=== PATIENT | male | born 1980 | race Caucasian/White ===

== ENCOUNTER 2019-08-27 11:40 | Day surgery (SDC) | payer OTHER ==
[~2019-08-27 11:40] MED LIST: Midazolam 1 MG/ML 2 ML SDV ONE; Propofol 200 MG/20 ML SDV ONE; fentaNYL 100 MCG/2 ML SDV ONE
--- NOTE | 2019-08-27 12:14 | PCM.PREANE ---
Preanesthetic Assessment - Anesthesia/Transfusion/Family Hx Anesthesia History: Prior Anesthesia Without Reaction Family History of Anesthesia Reaction: No Transfusion History: No Prior Transfusion(s) - Review of Systems General: No Symptoms Cardiovascular: No Symptoms Gastrointestinal: No Symptoms Neurological: No Symptoms Other: Reports: None - Physical Assessment NPO Status Date: 08/26/19 Height: 5 ft 8 in Weight: 146.964 kg ASA Class: 3 Mental Status: Alert & Oriented x3 Airway Class: Mallampati = 2 Dentition: Reports: Normal Dentition ROM/Head Extension: Full Lungs: Clear to Auscultation, Normal Respiratory Effort Cardiovascular: Regular Rate, Regular Rhythm - Allergies Allergies/Adverse Reactions: Allergies Allergy/AdvReac Type Severity Reaction Status Date / Time No Known Allergies Allergy Verified 08/23/19 13:06 - Blood Blood Available: No - Anesthesia Plan Pre-Op Medication Ordered: None - Acknowledgements Anesthesia Type Planned: General Anesthesia (tiva) Pt an Appropriate Candidate for the Planned Anesthesia: Yes Alternatives and Risks of Anesthesia Discussed w Pt/Guardian: Yes Pt/Guardian Understands and Agrees with Anesthesia Plan: Yes Additional Comments: PMH: DAISY-uses CPAP, chronic LBP, (denies gout, denies HTN - both listed as active problems inhis PMH) PLAN: tiva PreAnesthesia Questionnaire HEENT History: Reports: Hard of Hearing Other HEENT History: chastity hearing aids Cardiovascular History: Reports: None Respiratory History: Reports: Sleep Apnea Other Respiratory History: uses CPAP Gastrointestinal History: Reports: None Genitourinary History: Reports: Renal Calculus Musculoskeletal History: Reports: Back Pain, Chronic Neurological History: Reports: None Psychiatric History: Reports: Anxiety, Depression, PTSD Endocrine/Metabolic History: Reports: Obesity/BMI 30+ Hematologic History: Reports: None Immunologic History: Reports: None Oncologic (Cancer) History: Reports: None Dermatologic History: Reports: None - Past Surgical History Head Surgeries/Procedures: Reports: None HEENT Surgical History: Reports: Myringotomy w Tube(s) Cardiovascular Surgical History: Reports: None Respiratory Surgical History: Reports: None GI Surgical History: Reports: Hernia, Abdominal, Hernia, Inguinal Male Surgical History: Reports: None Endocrine Surgical History: Reports: None Neurological Surgical History: Reports: None Musculoskeletal Surgical History: Reports: None Oncologic Surgical History: Reports: None Dermatological Surgical History: Reports: None - SUBSTANCE USE Smoking Status *Q: Former Smoker Tobacco Use Within Last Twelve Months: No - HOME MEDS Home Medications: Home Meds DULoxetine HCl [Cymbalta] 60 mg PO DAILY 08/23/19 [History] Ibuprofen 800 mg PO TID PRN 08/23/19 [History] Prazosin HCl [Prazosin] 2 mg PO BEDTIME 08/23/19 [History] - CURRENT (IN HOUSE) MEDS Current Meds: Current Medications Discontinued Medications Fentanyl (Sublimaze) Confirm Administered Dose 100 mcg .ROUTE .STK-MED ONE Stop: 08/27/19 07:16 Lidocaine HCl (Xylocaine-Mpf 1%) Confirm Administered Dose 5 ml .ROUTE .STK-MED ONE Stop: 08/27/19 07:16 Midazolam HCl (Versed 1 Mg/Ml) Confirm Administered Dose 2 mg .ROUTE .STK-MED ONE Stop: 08/27/19 07:16 Propofol (Diprivan 20 Ml) Confirm Administered Dose 200 mg .ROUTE .STK-MED ONE Stop: 08/27/19 07:16
[2019-08-27] MEDS ORDERED: Lactated Ringers 1,000 ML IV SCH (12:15)
[2019-08-27] MEDS ORDERED: Propofol 200 MG/20 ML SDV ONE ×2 (13:03→13:21)
--- NOTE | 2019-08-27 13:49 | PCM.OPNOTE ---
- General Post-Op/Procedure Note Date of Surgery/Procedure: 08/27/19 Operative Procedure(s): egd w bx. colonoscopy w snare Findings: see [id number] Pre Op Diagnosis: gib Post-Op Diagnosis: Same Anesthesia Technique: Moderate Sedation Primary Surgeon: Montez Francisco Pathology: 1) egd bx 2) large 20mm pedunculated polyp at 55cm when scope pulled out, tattooed; 4mm sessile polyp at 30cm when scope pulled out Complications: None Condition: Good
--- NOTE | 2019-08-27 14:10 | PCM48HPAN ---
Post Anesthesia Note - EVALUATION WITHIN 48HRS OF ANESTHETIC Vital Signs in Normal Range: Yes Patient Participated in Evaluation: Yes Respiratory Function Stable: Yes Airway Patent: Yes Cardiovascular Function Stable: Yes Hydration Status Stable: Yes Pain Control Satisfactory: Yes Nausea and Vomiting Control Satisfactory: Yes Mental Status Recovered: Yes Vital Signs: Last Vital Signs Temp 96.8 F L 08/27/19 13:53 Pulse 70 08/27/19 13:53 Resp 16 08/27/19 13:53 BP 106/61 08/27/19 13:53 Pulse Ox 98 08/27/19 13:53
--- NOTE | 2019-08-27 14:10 | PCM.POSTAN ---
POST ANESTHESIA ASSESSMENT - MENTAL STATUS Mental Status: Alert, Oriented - VITAL SIGNS Vital Signs: Last Vital Signs Temp 96.8 F L 08/27/19 13:53 Pulse 70 08/27/19 13:53 Resp 16 08/27/19 13:53 BP 106/61 08/27/19 13:53 Pulse Ox 98 08/27/19 13:53 - RESPIRATORY Respiratory Status: Respiratory Rate WNL, Airway Patent, O2 Saturation Stable - CARDIOVASCULAR CV Status: Pulse Rate WNL, Blood Pressure Stable - GASTROINTESTINAL GI Status: No Symptoms - POST OP HYDRATION Hydration Status: Adequate & Stable
--- NOTE | 2019-08-27 17:20 | OR ---
SURGEON: Montez Francisco MD DATE OF PROCEDURE: 08/27/2019 PREOPERATIVE DIAGNOSIS: Gastrointestinal bleeding. POSTOPERATIVE DIAGNOSIS: Esophagogastroduodenoscopy diagnosis is gastroesophageal reflux disease and colonoscopy diagnosis is large polyp. PROCEDURES PERFORMED: Esophagogastroduodenoscopy with biopsy and colonoscopy with snare and tattoo DESCRIPTION OF PROCEDURE: EGD: The patient was taken to the endoscopy room, and with the INSURANCE PRODUCER, Diprivan was administered. A well-lubricated EGD scope was gently inserted through the oropharynx, down the esophagus, passing through the gastroesophageal junction, into the stomach. The mucosa was examined upon the passage. Any etiology will be noted. Once in the stomach, we continued to advance to the distal antrum, passed through the pylorus into the second portion of the duodenum. Again, the mucosa was examined for any abnormality and etiology. The scope was then retrieved back to the stomach and then retroflexed to look at the fundus of the stomach. If a biopsy was indicated, we will biopsy the antrum, body, and gastroesophageal junction. The air will be sucked out while the scope is retrieved to reduce the patient's discomfort. The patient tolerated the procedure well. There were no intraoperative complications. Dr. Francisco was present through the whole procedure. Prior to surgery, a time-out had been called, the patient identified, procedure identified and antibiotic administered. The patient was taken to the endoscopy room. A time out was called, patient identified, and procedure identified. Diprivan was then administrated. Patient went from awake to sleep, hearing doctor talking or door closing is normal. Perineum inspection and digital examination were then performed. A well- lubricated colonoscope was gently inserted through the rectum, advanced past the rectosigmoid junction, the descending colon, splenic flexure, transverse colon, hepatic flexure, ascending colon, arrived to the cecum. Cecum was identified as dictated in the finding. Then the scope was carefully withdrawn while attention was paid to the mucosal surface for any abnormality. Air will be sucked out during the scope withdrawal. At the rectum, retroflexed to examine any rectal diseases, fistula or hemorrhoids. During mucosal examination, abnormality or polyp encountered. Using snare equipment, the abnormality or the polyp was then snared off using electrocautery. The Patient tolerated procedure well. There were no intraoperative complications, and Dr. Francisco was present throughout the whole procedure. FINDINGS: EGD findings: 1. The patient is easily sedated with INSURANCE PRODUCER and Diprivan, the patient is soundly snoring. 2. Oropharynx and proximal esophagus are free of disease, stricture, inflammation. Distal esophagus at GE junction shows mild salmon-colored change, suggests mild acid reflux and stomach rugae is normal in appearance. Antrum is normal and duodenum is grossly normal. Retroflexed look at the fundus of stomach there is no hiatal hernia. Biopsy done at antrum, body, GE junction at 40 and sucked out the gas while scope pulling out. During the whole study, there is no food, bile, blood observed, none of those. Colonoscopy findings: 1. The patient is easily sedated with INSURANCE PRODUCER and Diprivan, the patient is soundly snoring. 2. Bowel prep is average to above average and some liquid stool, no semi- formed stool. 3. Colon rather straightforward. Cecum indicated by ileocecal fold, one-to- one indentation, appendiceal orifice, and light emittance not observed. ScopeGuide is pointing south. With irrigation, mucosa examined upon scope pulling out. The patient has a pedunculated polyp, large, about 20 mm at distance 55 when scope pulling out and that was snared and captured and sent for pathology, that one has a stalk, pedunculated polyp. It was tattooed and inked. As it continued to come out, the patient has another one, small one, at distance 30 when scope coming out, that one was also snared and captured and sent for pathology. The one on 55, the large one, pedunculated one was tattooed and the patient also has moderate internal hemorrhoids and moderate external hemorrhoids. The patient also has mild diverticulosis on the left colon. No signs or symptoms of diverticulitis and no inflammation, stricture, ulceration, AV malformation, bleeding, none of those. Repeat colonoscopy depends on the pathology of the polyp. As always, thank you for the kind referral. ANALI / JULY /[id number] MERCEDES
== END 2019-08-27 14:20 | disposition home or self-care (01) ==
LOC: MW.SDS 11:40
PROVIDERS: ATTEND Surgery
DX: D12.6 Benign neoplasm of colon, unspecified (principal); K29.50 Unspecified chronic gastritis without bleeding; K21.0 Gastro-esophageal reflux disease with esophagitis; K57.30 Diverticulosis of large intestine without perforation or abscess without bleeding; K64.8 Other hemorrhoids; K64.4 Residual hemorrhoidal skin tags; F41.9 Anxiety disorder, unspecified; F32.9 Major depressive disorder, single episode, unspecified; I10 Essential (primary) hypertension; E66.9 Obesity, unspecified; E78.00 Pure hypercholesterolemia, unspecified; Z79.899 Other long term (current) drug therapy; Z87.891 Personal history of nicotine dependence; Z68.42 Body mass index [BMI] 45.0-49.9, adult
CPT/HCPCS: 43239; 45381; 45385; J2001; J2250; J2704; J3010; J7120; 00813

== ENCOUNTER 2020-09-17 11:56 | Emergency (ER) | payer OTHER, BC ==
[2020-09-17] MEDS ORDERED: Morphine 4 MG/ML Syringe IVPUSH ONE (12:16)
[2020-09-17] MEDS ORDERED: Sodium Chloride 0.9% 2.5 ML Syringe FLUSH PRN (12:16)
[2020-09-17] MEDS ORDERED: Ondansetron 4 MG/2 ML SDV IVPUSH ONE (12:16)
[2020-09-17] MEDS ORDERED: Sodium Chloride 0.9% 10 ML Syringe FLUSH PRN (12:16)
--- NOTE | 2020-09-17 12:21 | EDM.PDOC ---
ED HPI GENERAL MEDICAL PROBLEM - General Chief Complaint: Flank Pain Stated Complaint: SEVERE STOMACH, BACK, AND GROIN PAIN Time Seen by Provider: 09/17/20 11:58 - History of Present Illness INITIAL COMMENTS - FREE TEXT/NARRATIVE: 40-year-old male otherwise well presenting with acute onset left flank pain radiating into the left lower quadrant to the left groin. Patient had a mild stomachache when he woke up this morning. However 45 minutes prior to arrival he developed sudden severe left inferior flank pain radiating into the left groin minimally down the left leg and into the left testicle as well. No exacerbating or alleviating factors no comfortable position. He does have a history of renal colic in the past. He also has a history of bilateral inguinal hernia repair in the past. Some nausea but no vomiting no diarrhea. No fevers. Pain currently 10 out of 10. He endorses mild testicle discomfort but denies severe testicle pain. flank Pain Score (Numeric/FACES): 9 - Related Data Allergies Allergy/AdvReac Type Severity Reaction Status Date / Time No Known Allergies Allergy Verified 09/17/20 12:18 Home Meds: Home Meds . [No Known Home Meds] 09/17/20 [History] Past Medical History HEENT History: Reports: Hard of Hearing Other HEENT History: chastity hearing aids Cardiovascular History: Reports: None Respiratory History: Reports: Sleep Apnea Other Respiratory History: uses CPAP Gastrointestinal History: Reports: None Genitourinary History: Reports: Renal Calculus Musculoskeletal History: Reports: Back Pain, Chronic Neurological History: Reports: None Psychiatric History: Reports: Anxiety, Depression, PTSD Endocrine/Metabolic History: Reports: Obesity/BMI 30+ Hematologic History: Reports: None Immunologic History: Reports: None Oncologic (Cancer) History: Reports: None Dermatologic History: Reports: None - Past Surgical History Head Surgeries/Procedures: Reports: None HEENT Surgical History: Reports: Myringotomy w Tube(s) Cardiovascular Surgical History: Reports: None Respiratory Surgical History: Reports: None GI Surgical History: Reports: Hernia, Abdominal, Hernia, Inguinal Male Surgical History: Reports: None Endocrine Surgical History: Reports: None Neurological Surgical History: Reports: None Musculoskeletal Surgical History: Reports: None Oncologic Surgical History: Reports: None Dermatological Surgical History: Reports: None Social & Family History - Family History Family Medical History: No Pertinent Family History ED ROS GENERAL - Review of Systems Review Of Systems: See Below Free Text/Narrative/Comment: General: No fever. Neck: No neck stiffness. Respiratory: No shortness of breath. Cardiac: No chest pain. Gastrointestinal: Per HPI Urinary: Per HPI Musculoskeletal: No myalgias/arthralgias. Neurologic: No headache. ED EXAM, GENERAL - Physical Exam Exam: See Below Free Text/Narrative:: General Appearance: No acute distress, appears comfortable Skin: No rash HEENT: Normocephalic/atraumatic, sclera anicteric, mucous membranes moist Neck: Normal range of motion Chest and Lungs: Bilateral breath sounds, clear to auscultation Cardiovascular: Regular rate and rhythm, no murmur Abdomen: Minimal left lower quadrant tenderness without guarding or rebound minimal left inguinal tenderness but no palpable swelling or mass : Bilaterally distended testicles without tenderness Back: Normal Musculoskeletal: No edema or tenderness Neurologic: Awake, alert, no obvious deficits, moving all extremities Psychiatric: Appropriate, cooperative Course - Vital Signs Last Recorded V/S: Last Vital Signs Temp 98 F 09/17/20 12:18 Pulse 71 09/17/20 12:18 Resp BP 131/75 09/17/20 12:18 Pulse Ox 95 09/17/20 12:18 - Orders/Labs/Meds Orders: Active Orders 24 hr Category Date Time Status Sodium Chloride 0.9% [Saline Flush] Med 09/17/20 12:16 Active 10 ml FLUSH ASDIRECTED PRN Sodium Chloride 0.9% [Saline Flush] Med 09/17/20 12:16 Active 2.5 ml FLUSH ASDIRECTED PRN Saline Lock Insert [OM.PC] Stat Oth 09/17/20 12:16 Ordered Medication Orders Sodium Chloride (Sodium Chloride 0.9% 10 Ml Syringe) 10 ml FLUSH ASDIRECTED PRN PRN Reason: Keep Vein Open Last Admin: 09/17/20 12:30 Dose: 10 ml Documented by: LUIS A Sodium Chloride (Sodium Chloride 0.9% 2.5 Ml Syringe) 2.5 ml FLUSH ASDIRECTED PRN PRN Reason: Keep Vein Open Last Admin: 09/17/20 12:30 Dose: 2.5 ml Documented by: LUIS A Labs: Laboratory Tests 09/17/20 09/17/20 09/17/20 Range/Units 12:35 12:35 13:20 WBC 6.37 (4.0-11.0) K/uL RBC 4.85 (4.50-5.90) M/uL Hgb 14.7 (13.0-17.0) g/dL Hct 42.6 (38.0-50.0) % MCV 87.8 (80.0-98.0) fL MCH 30.3 (27.0-32.0) pg MCHC 34.5 (31.0-37.0) g/dL RDW Std Deviation 40.4 (28.0-62.0) fl RDW Coeff of Werner 13 (11.0-15.0) % Plt Count 236 (150-400) K/uL MPV 11.60 (7.40-12.00) fL Neut % (Auto) 70.0 (48.0-80.0) % Lymph % (Auto) 18.1 (16.0-40.0) % [place] % (Auto) 10.0 (0.0-15.0) % Eos % (Auto) 1.6 (0.0-7.0) % Baso % (Auto) 0.3 (0.0-1.5) % Neut # (Auto) 4.5 (1.4-5.7) K/uL Lymph # (Auto) 1.2 (0.6-2.4) K/uL [place] # (Auto) 0.6 (0.0-0.8) K/uL Eos # (Auto) 0.1 (0.0-0.7) K/uL Baso # (Auto) 0.0 (0.0-0.1) K/uL Nucleated RBC % 0.0 /100WBC Nucleated RBCs # 0 K/uL Sodium 142 (136-148) mmol/L Potassium 4.0 (3.5-5.1) mmol/L Chloride 104 (98-107) mmol/L Carbon Dioxide 29.8 (21.0-32.0) mmol/L BUN 12 (7.0-18.0) mg/dL Creatinine 1.2 (0.8-1.3) mg/dL Est Cr Clr Drug Dosing 79.96 mL/min Estimated GFR (MDRD) > 60.0 ml/min Glucose 101 (74-106) mg/dL Calcium 8.6 (8.5-10.1) mg/dL Total Bilirubin 0.4 (0.2-1.0) mg/dL AST 21 (15-37) IU/L ALT 45 (14-63) IU/L Alkaline Phosphatase 88 (46-116) U/L Total Protein 7.3 (6.4-8.2) g/dL Albumin 3.5 (3.4-5.0) g/dL Globulin 3.8 (2.6-4.0) g/dL Albumin/Globulin Ratio 0.9 (0.9-1.6) Urine Color YELLOW Urine Appearance CLEAR Urine pH 6.0 (5.0-8.0) Ur Specific [place] 1.020 (1.001-1.035) Urine Protein NEGATIVE (NEGATIVE) mg/dL Urine Glucose (UA) NEGATIVE (NEGATIVE) mg/dL Urine Ketones NEGATIVE (NEGATIVE) mg/dL Urine Occult Blood LARGE H (NEGATIVE) Urine Nitrite NEGATIVE (NEGATIVE) Urine Bilirubin NEGATIVE (NEGATIVE) Urine Urobilinogen 0.2 (<2.0) EU/dL Ur Leukocyte Esterase NEGATIVE (NEGATIVE) Urine RBC 4-6 (0-2/HPF) Urine WBC 0-2 (0-5/HPF) Ur Epithelial Cells RARE (NONE-FEW) Amorphous Sediment RARE (NEGATIVE) Urine Bacteria RARE (NEGATIVE) Urine Mucus RARE (NONE-MOD) Meds: Medications Generic Name Dose Route Start Last Admin Trade Name Marti PRN Reason Stop Dose Admin Sodium Chloride 10 ml 09/17/20 12:16 09/17/20 12:30 Sodium Chloride 0.9% 10 Ml Syringe FLUSH 10 ml ASDIRECTED PRN Administration Keep Vein Open Sodium Chloride 2.5 ml 09/17/20 12:16 09/17/20 12:30 Sodium Chloride 0.9% 2.5 Ml Syringe FLUSH 2.5 ml ASDIRECTED PRN Administration Keep Vein Open Discontinued Medications Generic Name Dose Route Start Last Admin Trade Name Marti PRN Reason Stop Dose Admin Ketorolac Tromethamine 15 mg 09/17/20 13:19 09/17/20 13:37 Ketorolac 30 Mg/Ml Sdv IVPUSH 09/17/20 13:20 15 mg ONETIME ONE Administration Morphine Sulfate 4 mg 09/17/20 12:16 09/17/20 12:30 Morphine 4 Mg/Ml Syringe IVPUSH 09/17/20 12:17 4 mg ONETIME ONE Administration Ondansetron HCl 4 mg 09/17/20 12:16 09/17/20 12:30 Ondansetron 4 Mg/2 Ml Sdv IVPUSH 09/17/20 12:17 4 mg ONETIME ONE Administration Departure - Departure Time of Disposition: 13:52 Disposition: Home, Self-Care 01 Condition: Good Clinical Impression: Renal colic - Discharge Information *PRESCRIPTION DRUG MONITORING PROGRAM REVIEWED*: Not Applicable *COPY OF PRESCRIPTION DRUG MONITORING REPORT IN PATIENT HENRY: Not Applicable Instructions: Kidney Stones, [id number] Referrals: Demario Qureshi MD [Primary Care Provider] - Forms: ED Department Discharge Additional Instructions: You have a 3 mm kidney stone lodged just outside your bladder on the left side. For the next several days please take 1 800 mg ibuprofen tablet every 8 hours with food. You have the [place] which you can use as well as you need to for additional breakthrough pain. Please follow-up with your primary care doctor or [facility] If you have not passed the stone on your own in the next several days you will need to follow-up with the urologist. They are not currently any practicing urologist in [place] that are accepting new patients. So I encourage you to follow-up with Dr. Qureshi or the [place]. The following information is given to patients seen in the emergency department who are being discharged to home. This information is to outline your options for follow-up care. We provide all patients seen in our emergency department with a follow-up referral. The need for follow-up, as well as the timing and circumstances, are variable depending upon the specifics of your emergency department visit. If you don't have a primary care physician on staff, we will provide you with a referral. We always advise you to contact your personal physician following an emergency department visit to inform them of the circumstance of the visit and for follow-up with them and/or the need for any referrals to a consulting specialist. The emergency department will also refer you to a specialist when appropriate. This referral assures that you have the opportunity for follow-up care with a specialist. All of these measure are taken in an effort to provide you with optimal care, which includes your follow-up. Under all circumstances we always encourage you to contact your private physician who remains a resource for coordinating your care. When calling for follow-up care, please make the office aware that this follow-up is from your recent emergency room visit. If for any reason you are refused follow-up, please contact the [facility] Emergency Department at and asked to speak to the emergency department charge nurse. Sepsis Event Note (ED) - Focused Exam Vital Signs: Vital Signs Temp Pulse BP Pulse Ox 09/17/20 12:18 98 F 71 131/75 95 - My Orders Last 24 Hours: My Active Orders 09/17/20 12:16 Sodium Chloride 0.9% [Saline Flush] 10 ml FLUSH ASDIRECTED PRN Sodium Chloride 0.9% [Saline Flush] 2.5 ml FLUSH ASDIRECTED PRN Saline Lock Insert [OM.PC] Stat - Assessment/Plan Last 24 Hours: My Active Orders 09/17/20 12:16 Sodium Chloride 0.9% [Saline Flush] 10 ml FLUSH ASDIRECTED PRN Sodium Chloride 0.9% [Saline Flush] 2.5 ml FLUSH ASDIRECTED PRN Saline Lock Insert [OM.PC] Stat Assessment:: 40-year-old male presenting with signs and symptoms that are most consistent with renal colic. Left inguinal hernia would also explain the symptoms. Testicular torsion considered as well. Patient has no mechanism for this his e xam does not reveal high riding testicle or severe testicle tenderness. Morphine Zofran ordered for symptoms labs and CT without contrast pending. If CT does not yield any diagnosis then could consider testicular ultrasound at that time. However, I think torsion is much less likely. 1325: Patient's labs are normal though urinalysis remains pending. CT demonstrates an obstructing left-sided 3 mm ureteral stone which I believe is the cause of his symptoms. Pain somewhat improved will provide a dose of Toradol. Patient has 800 mg ibuprofen tabs at home. He has a primary care doctor and also follows [facility]. He will be given a urine strainer as well. We await urinalysis prior to discharge. UA is clear, patient discharged.
[2020-09-17 13:05] LABS: BLOOD UREA NITROGEN,BUN 12 mg/dL (7.0-18.0); CARBON DIOXIDE,CO2 29.8 mmol/L (21.0-32.0); CHLORIDE,CL 104 mmol/L (98-107); GLUCOSE RANDOM 101 mg/dL (74-106); SODIUM,NA 142 mmol/L (136-148)
--- NOTE | 2020-09-17 13:18 | CT ---
Indication: Left lower quadrant pain Technique: A CT volumetric acquisition was performed of the abdomen and pelvis without IV contrast. Comparison: None available Findings: The CT images demonstrate a normal appearance of the lung bases. There is generalized hepatic steatosis. The spleen appears normal. There is no evidence of mass or inflammation within the pancreas or stomach. The gallbladder and bile ducts are normal in size. The adrenal glands have normal morphology. The right kidney appears normal. There is mild edema within the left kidney and within the upper pole there is a 4 mm calculus on image 80. There is mild hydronephrosis and the dilated left ureter can be followed distally into the pelvis where there is a partially obstructing 3 mm calculus line just proximal to the bladder wall. The small intestine and colon appear normal. The prostate gland and urinary bladder appear normal. Impression: Nephrolithiasis. Partially obstructing 3 mm calculus noted at the left ureterovesical juncture. Please note that all CT scans at this facility use dose modulation, iterative reconstruction, and/or weight-based dosing when appropriate to reduce radiation dose to as low as reasonably achievable. Dictated by Abdias Pinon MD @ 09/17/2020 1:17:[address] Abdias Pinon @ Sep 17 2020 1:17PM
[2020-09-17] MEDS ORDERED: Ketorolac 30 MG/ML SDV IVPUSH ONE (13:19)
== END 2020-09-17 14:20 | disposition home or self-care (01) ==
LOC: MW.ED 11:56
DX: N23 Unspecified renal colic (principal); K40.90 Unilateral inguinal hernia, without obstruction or gangrene, not specified as recurrent; E66.9 Obesity, unspecified; Z68.43 Body mass index [BMI] 50.0-59.9, adult
CPT/HCPCS: 74176; 80053; 81001; 85025; 96374; 96375; 99284; J1885; J2270; J2405

== ENCOUNTER 2020-10-25 10:54 | Emergency (ER) | payer BC, OTHER ==
[2020-10-25] MEDS ORDERED: Sodium Chloride 0.9% 1,000 ML IV ONE (11:19)
[2020-10-25] MEDS ORDERED: Sodium Chloride 0.9% 10 ML Syringe FLUSH PRN (11:19)
[2020-10-25] MEDS ORDERED: Sodium Chloride 0.9% 2.5 ML Syringe FLUSH PRN (11:19)
[2020-10-25 11:47] LABS: BLOOD UREA NITROGEN,BUN 15 mg/dL (7.0-18.0); CARBON DIOXIDE,CO2 29.4 mmol/L (21.0-32.0); CHLORIDE,CL 103 mmol/L (98-107); GLUCOSE RANDOM 99 mg/dL (74-106); LIPASE 50 U/L (73-393); POTASSIUM,K 4.1 mmol/L (3.5-5.1); SODIUM,NA 141 mmol/L (136-148)
--- NOTE | 2020-10-25 12:08 | CT ---
INDICATION: Left-sided abdomen pain. History of renal stones. TECHNIQUE: CT abdomen and pelvis without contrast. COMPARISON: None. FINDINGS: Lower chest: Unremarkable. Liver: Normal in size and attenuation. No suspicious masses. Gallbladder and bile ducts: No stones or inflammation. No biliary dilatation. Pancreas: Unremarkable. No mass or inflammation. Spleen: Normal in size. No masses. Adrenal glands: Normal in size. No nodules. Kidneys: There are 2 tiny nonobstructive stones in the left kidney. No ureteral stones and no hydronephrosis. No perinephric edema. GI tract: Unremarkable. Normal in caliber. No sign of mass or inflammation. Normal appendix. Vasculature: Unremarkable. Lymph nodes: No lymphadenopathy. Abdominal wall/Omentum/Peritoneum: Unremarkable. No sign of mass or infiltration. No free air or significant free fluid. Pelvis: Unremarkable. No pelvic masses. Bones: Unremarkable for age. IMPRESSION: Minimal left renal nonobstructive nephrolithiasis. No ureteral stones and no hydronephrosis. Remainder of the exam is unremarkable. No other finding to explain abdominal pain. Please note that all CT scans at this facility use dose modulation, iterative reconstruction, and/or weight-based dosing when appropriate to reduce radiation dose to as low as reasonably achievable. Dictated by Kevan Jameson MD @ 10/25/2020 12:08:[address] Kevan Jameson @ Oct 25 2020 12:08PM
--- NOTE | 2020-10-25 12:38 | EDM.PDOC ---
ED HPI GENERAL MEDICAL PROBLEM - General Chief Complaint: Abdominal Pain Stated Complaint: LOWER LEFT STOMACH PAIN Time Seen by Provider: 10/25/20 11:19 - History of Present Illness INITIAL COMMENTS - FREE TEXT/NARRATIVE: HISTORY AND PHYSICAL: History of present illness: Is a 40-year-old gentleman with history significant for a left kidney stone approximately a month and half ago who presents ER today complaining of diffuse midepigastric abdominal discomfort that started approximately 1 day ago and is slowly migrated down to his left lower quadrant. Patient reports that he had associated diarrhea but no nausea or vomiting. Patient denies any recent fevers, shakes, chills. Patient denies any chest pain or shortness of breath. Patient has any melena or bright red blood per rectum. Patient denies any hematuria. Patient denies any dysuria, frequency, urgency. Patient reports normal p.o. intake. Patient ports that he has not been able to work for the last 2 days secondary to the discomfort that he was having. Review of systems: As per history of present illness and below otherwise all systems reviewed and negative. Past medical history: As per history of present illness and as reviewed below otherwise n oncontributory. Surgical history: As per history of present illness and as reviewed below otherwise noncontributory. Social history: No reported history of drug abuse. Family history: As per history of present illness and as reviewed below otherwise noncontributory. Physical exam: This patient was seen and evaluated during the 2019 SARS-CoV-2 novel coronavirus pandemic period. Community viral transmission is ongoing at time of this encounter and the emergency department is operating under pandemic response procedures. Constitutional: Patient is oriented to person, place, and time. Appears well- developed and well-nourished. No distress. HEENT: Moist mucous membranes Head: Normocephalic and atraumatic Eyes: Right eye exhibits no discharge. Left eye exhibits no discharge. No scleral icterus Neck: Normal range of motion. No tracheal deviation present. Cardiovascular: Normal rate and regular rhythm. Pulmonary: Effort normal, no respiratory distress. Abd: Soft, nondistended, no rebound/guarding, no psoas or obturator signs, no tenderness at Mcberney's point, no Franklin's sign. Pt does not present with an exam that would be consistent with an acute surgical abdomen at this time. Mild tenderness palpation left lower quadrant Musculoskeletal: Normal range of motion Neurologic: Alert and oriented to person, place and time. Skin: [place], warm and dry. Psychiatric: Normal mood and affect. Behavior is normal. Judgment and thought content normal. Nursing note and vital signs have been reviewed Diagnostics: CT scan of the abdomen pelvis reveals no significant abnormalities. There is a small left renal stone with no evidence of hydronephrosis or obstruction. Therapeutics: NSS x1 L Assessment and plan: 40-year-old gentleman with left lower quadrant abdominal pain and associated diarrhea most likely secondary to enteritis. Patient's labs and CT scan are unremarkable. Patient was given 1 L of NSS. Patient currently feels well and feels comfortable with plan to be discharged home but is requesting a work note until Friday secondary to the discomfort. Reassessment at the time of disposition demonstrates that the patient is in no acute distress. The patient has remained stable throughout the entire ED visit and is without objective evidence for acute process requiring urgent intervention or hospitalization. The patient is stable for discharge, counseling is provided as documented above, discussed symptomatic treatment and specific conditions for return. I have spoken with the patient/caregiver and discussed todays findings, in addition to providing specific details for the plan of care. Questions are answered and there is agreement with the plan. Definitive disposition and diagnosis as appropriate pending reevaluation and review of above. abdomen Pain Score (Numeric/FACES): 5 - Related Data Allergies Allergy/AdvReac Type Severity Reaction Status Date / Time No Known Allergies Allergy Verified 10/25/20 11:09 Home Meds: Home Meds . [No Known Home Meds] 09/17/20 [History] Past Medical History HEENT History: Reports: Hard of Hearing Other HEENT History: chastity hearing aids Cardiovascular History: Reports: None Respiratory History: Reports: Sleep Apnea Other Respiratory History: uses CPAP Gastrointestinal History: Reports: None Genitourinary History: Reports: Renal Calculus Musculoskeletal History: Reports: Back Pain, Chronic Neurological History: Reports: None Psychiatric History: Reports: Anxiety, Depression, PTSD Endocrine/Metabolic History: Reports: Obesity/BMI 30+ Hematologic History: Reports: None Immunologic History: Reports: None Oncologic (Cancer) History: Reports: None Dermatologic History: Reports: None - Infectious Disease History Infectious Disease History: Reports: Chicken Pox - Past Surgical History Head Surgeries/Procedures: Reports: None HEENT Surgical History: Reports: Myringotomy w Tube(s) Cardiovascular Surgical History: Reports: None Respiratory Surgical History: Reports: None GI Surgical History: Reports: Colonoscopy, Hernia, Abdominal, Hernia, Inguinal, Other (See Below) Other GI Surgeries/Procedures: endoscopy Male Surgical History: Reports: None Endocrine Surgical History: Reports: None Neurological Surgical History: Reports: None Musculoskeletal Surgical History: Reports: None Oncologic Surgical History: Reports: None Dermatological Surgical History: Reports: None Social & Family History - Family History Family Medical History: No Pertinent Family History - Tobacco Use Tobacco Use Status *Q: Former Tobacco User Used Tobacco, but Quit: No - Caffeine Use Caffeine Use: Reports: Tea - Recreational Drug Use Recreational Drug Use: No ED ROS GENERAL - Review of Systems Review Of Systems: See Below ED EXAM, GENERAL - Physical Exam Exam: See Below Course - Vital Signs Last Recorded V/S: Last Vital Signs Temp 98.0 F 10/25/20 11:06 Pulse 86 10/25/20 11:06 Resp 17 10/25/20 11:06 BP 143/84 H 10/25/20 11:06 Pulse Ox 96 10/25/20 11:06 - Orders/Labs/Meds Orders: Active Orders 24 hr Category Date Time Status Sodium Chloride 0.9% [Saline Flush] Med 10/25/20 11:19 Active 10 ml FLUSH ASDIRECTED PRN Sodium Chloride 0.9% [Saline Flush] Med 10/25/20 11:19 Active 2.5 ml FLUSH ASDIRECTED PRN Saline Lock Insert [OM.PC] Stat Oth 10/25/20 11:19 Ordered Medication Orders Sodium Chloride (Sodium Chloride 0.9% 10 Ml Syringe) 10 ml FLUSH ASDIRECTED PRN PRN Reason: Keep Vein Open Last Admin: 10/25/20 11:40 Dose: 10 ml Documented by: GARIMA Sodium Chloride (Sodium Chloride 0.9% 2.5 Ml Syringe) 2.5 ml FLUSH ASDIRECTED PRN PRN Reason: Keep Vein Open Last Admin: 10/25/20 11:40 Dose: 2.5 ml Documented by: GARIMA Labs: Laboratory Tests 10/25/20 10/25/20 10/25/20 Range/Units 11:12 11:12 11:12 WBC 6.83 (4.0-11.0) K/uL RBC 4.98 (4.50-5.90) M/uL Hgb 15.2 (13.0-17.0) g/dL Hct 44.5 (38.0-50.0) % MCV 89.4 (80.0-98.0) fL MCH 30.5 (27.0-32.0) pg MCHC 34.2 (31.0-37.0) g/dL RDW Std Deviation 42.3 (28.0-62.0) fl RDW Coeff of Werner 13 (11.0-15.0) % Plt Count 245 (150-400) K/uL MPV 11.30 (7.40-12.00) fL Neut % (Auto) 66.4 (48.0-80.0) % Lymph % (Auto) 22.0 (16.0-40.0) % [place] % (Auto) 9.8 (0.0-15.0) % Eos % (Auto) 1.5 (0.0-7.0) % Baso % (Auto) 0.3 (0.0-1.5) % Neut # (Auto) 4.5 (1.4-5.7) K/uL Lymph # (Auto) 1.5 (0.6-2.4) K/uL [place] # (Auto) 0.7 (0.0-0.8) K/uL Eos # (Auto) 0.1 (0.0-0.7) K/uL Baso # (Auto) 0.0 (0.0-0.1) K/uL Nucleated RBC % 0.0 /100WBC Nucleated RBCs # 0 K/uL Sodium 141 (136-148) mmol/L Potassium 4.1 (3.5-5.1) mmol/L Chloride 103 (98-107) mmol/L Carbon Dioxide 29.4 (21.0-32.0) mmol/L BUN 15 (7.0-18.0) mg/dL Creatinine 1.0 (0.8-1.3) mg/dL Est Cr Clr Drug Dosing 95.95 mL/min Estimated GFR (MDRD) > 60.0 ml/min Glucose 99 (74-106) mg/dL Calcium 8.5 (8.5-10.1) mg/dL Total Bilirubin 0.4 (0.2-1.0) mg/dL AST 26 (15-37) IU/L ALT 55 (14-63) IU/L Alkaline Phosphatase 93 (46-116) U/L Total Protein 7.7 (6.4-8.2) g/dL Albumin 3.8 (3.4-5.0) g/dL Globulin 3.9 (2.6-4.0) g/dL Albumin/Globulin Ratio 1.0 (0.9-1.6) Lipase 50 L (73-393) U/L Urine Color YELLOW Urine Appearance CLEAR Urine pH 7.0 (5.0-8.0) Ur Specific [place] 1.020 (1.001-1.035) Urine Protein NEGATIVE (NEGATIVE) mg/dL Urine Glucose (UA) NEGATIVE (NEGATIVE) mg/dL Urine Ketones NEGATIVE (NEGATIVE) mg/dL Urine Occult Blood TRACE-INTACT H (NEGATIVE) Urine Nitrite NEGATIVE (NEGATIVE) Urine Bilirubin NEGATIVE (NEGATIVE) Urine Urobilinogen 0.2 (<2.0) EU/dL Ur Leukocyte Esterase NEGATIVE (NEGATIVE) Urine RBC NONE SEEN (0-2/HPF) Urine WBC 0-1 (0-5/HPF) Ur Epithelial Cells RARE (NONE-FEW) Urine Bacteria RARE (NEGATIVE) Urine Mucus LIGHT (NONE-MOD) Meds: Medications Generic Name Dose Route Start Last Admin Trade Name Freq PRN Reason Stop Dose Admin Sodium Chloride 10 ml 10/25/20 11:19 10/25/20 11:40 Sodium Chloride 0.9% 10 Ml Syringe FLUSH 10 ml ASDIRECTED PRN Administration Keep Vein Open Sodium Chloride 2.5 ml 10/25/20 11:19 10/25/20 11:40 Sodium Chloride 0.9% 2.5 Ml Syringe FLUSH 2.5 ml ASDIRECTED PRN Administration Keep Vein Open Discontinued Medications Generic Name Dose Route Start Last Admin Trade Name Freq PRN Reason Stop Dose Admin Sodium Chloride 1,000 mls @ 999 mls/hr 10/25/20 11:19 10/25/20 11:40 Normal Saline IV 10/25/20 12:19 999 mls/hr .Bolus ONE Administration Departure - Departure Time of Disposition: 12:37 Disposition: Home, Self-Care 01 Condition: Good Clinical Impression: Abdominal pain Qualifiers: Abdominal location: left lower quadrant Qualified Code(s): R10.32 - Left lower quadrant pain Diarrhea Qualifiers: Diarrhea type: unspecified type Qualified Code(s): R19.7 - Diarrhea, unspecified - Discharge Information Instructions: Abdominal Pain, Adult, [id number], Diarrhea, Adult Referrals: PCP,None [Primary Care Provider] - Additional Instructions: You were seen and evaluated in ER today secondary to pain in your left lower abdomen. The CT scan of your abdomen pelvis as well as all your blood tests were within normal limits. Given that you do have diarrhea this may be related to either a stomach virus or something that you ate that did not agree with you. You will be given a work note for today and tomorrow. Please drink plenty of liquids over the next 1 to 2 days and maintain an extremely bland diet. Please make an appointment to follow-up with your family doctor if your symptoms are not improved within the next 1 to 2 days. The following information is given to patients seen in the emergency department who are being discharged to home. This information is to outline your options for follow-up care. We provide all patients seen in our emergency department with a follow-up referral. The need for follow-up, as well as the timing and circumstances, are variable depending upon the specifics of your emergency department visit. If you don't have a primary care physician on staff, we will provide you with a referral. We always advise you to contact your personal physician following an emergency department visit to inform them of the circumstance of the visit and for follow-up with them and/or the need for any referrals to a consulting specialist. The emergency department will also refer you to a specialist when appropriate. This referral assures that you have the opportunity for follow-up care with a specialist. All of these measure are taken in an effort to provide you with optimal care, which includes your follow-up. Under all circumstances we always encourage you to contact your private physician who remains a resource for coordinating your care. When calling for follow-up care, please make the office aware that this follow-up is from your recent emergency room visit. If for any reason you are refused follow-up, please contact the [facility] Emergency Department at and asked to speak to the emergency department charge nurse. [facility] [address] [place] [id number] [facility] [address] [place] [address] Sepsis Event Note (ED) - Focused Exam Vital Signs: Vital Signs Temp Pulse Resp BP Pulse Ox 10/25/20 11:06 98.0 F 86 17 143/84 H 96 - My Orders Last 24 Hours: My Active Orders 10/25/20 11:19 Sodium Chloride 0.9% [Saline Flush] 10 ml FLUSH ASDIRECTED PRN Sodium Chloride 0.9% [Saline Flush] 2.5 ml FLUSH ASDIRECTED PRN Saline Lock Insert [OM.PC] Stat - Assessment/Plan Last 24 Hours: My Active Orders 10/25/20 11:19 Sodium Chloride 0.9% [Saline Flush] 10 ml FLUSH ASDIRECTED PRN Sodium Chloride 0.9% [Saline Flush] 2.5 ml FLUSH ASDIRECTED PRN Saline Lock Insert [OM.PC] Stat
== END 2020-10-25 12:58 | disposition home or self-care (01) ==
LOC: MW.ED 10:54
DX: R10.32 Left lower quadrant pain (principal); R19.7 Diarrhea, unspecified; E66.9 Obesity, unspecified; Z87.891 Personal history of nicotine dependence; Z68.43 Body mass index [BMI] 50.0-59.9, adult
CPT/HCPCS: 36415; 74176; 80053; 81001; 83690; 85025; 99284; J7030

== ENCOUNTER 2021-05-02 22:05 | Emergency (ER) | payer BC, OTHER ==
[2021-05-02] MEDS ORDERED: Amoxicillin 500 MG Cap PO ONE (23:04)
[2021-05-02] MEDS ORDERED: Hydrocortisone/Neomycin/Polymyxin B Otic Susp 10 ML Bottle EARRT STA (23:04)
[2021-05-02] MEDS ORDERED: Ketorolac 30 MG/ML SDV IM ONE (23:05)
== END 2021-05-02 23:30 | disposition home or self-care (01) ==
LOC: MW.ED 22:05
DX: H60.501 Unspecified acute noninfective otitis externa, right ear (principal); H66.91 Otitis media, unspecified, right ear; E66.9 Obesity, unspecified; Z68.43 Body mass index [BMI] 50.0-59.9, adult
CPT/HCPCS: 96372; 99282; A9270; J1885; 99283